=== PATIENT | female | born 1985 | race Caucasian/White ===

== ENCOUNTER 2024-12-09 07:51 | Day surgery (SDC) | payer BC ==
[2024-12-09] MEDS ORDERED: Sodium Chloride 0.9% 10 ML Syringe FLUSH PRN (08:00)
[2024-12-09] MEDS: Lactated Ringers 1,000 ML IV SCH (08:20)
[2024-12-09] MEDS ORDERED: Midazolam 1 MG/ML 2 ML SDV ONE (09:15)
[2024-12-09] MEDS ORDERED: Propofol 200 MG/20 ML SDV ONE (09:15)
[2024-12-09] MEDS ORDERED: Lactated Ringers 1,000 ML ONE (09:51)
== END 2024-12-09 11:30 | disposition home or self-care (01) ==
LOC: KA.SDS 07:51
PROVIDERS: ATTEND Surgery
DX: D12.5 Benign neoplasm of sigmoid colon (principal); K64.8 Other hemorrhoids; K64.4 Residual hemorrhoidal skin tags; Z88.5 Allergy status to narcotic agent
CPT/HCPCS: 45380; 81025; J2250; J2704; J7120; 00811